=== PATIENT | male | born 1960 | race Caucasian/White ===

== ENCOUNTER 2020-11-29 19:11 | Emergency (ER) | payer OTHER ==
[2020-11-29] MEDS ORDERED: Sodium Chloride 0.9% 10 ML Syringe FLUSH PRN (19:44)
--- NOTE | 2020-11-29 19:54 | EDM.PDOC ---
ED HPI GENERAL MEDICAL PROBLEM - General Chief Complaint: Abdominal Pain Stated Complaint: ABDOMINAL PAINS Time Seen by Provider: 11/29/20 19:34 Source of Information: Reports: Patient, RN Notes Reviewed History Limitations: Reports: No Limitations - History of Present Illness INITIAL COMMENTS - FREE TEXT/NARRATIVE: Patient is a 60-year-old male presenting to the emergency department with complaints of left lower quadrant abdominal pain. This pain has been occurring off and on for approximately last month. He believes it could be related to constipation. In the past, he has used Ex-Lax and the pain has improved after taking that medication. He states that Monday this week, he felt fairly good. Today the left lower quadrant abdominal pain return, however he did have a normal bowel movement today. He denies any fever, chills, nausea, vomiting, or diarrhea. He has had a colonoscopy in the past and does not remember being told that he has diverticulosis. He is scheduled to have a repeat colonoscopy done next week. Denies any previous abdominal surgeries. Left Lower Abdomen Pain Score (Numeric/FACES): 5 - Related Data Allergies Allergy/AdvReac Type Severity Reaction Status Date / Time No Known Allergies Allergy Verified 11/29/20 19:33 Home Meds: Home Meds Lisinopril/Hydrochlorothiazide [Lisinopril-Hctz 20-25 mg Tab] 1 tab PO DAILY 11/29/20 [History] Past Medical History Cardiovascular History: Reports: Hypertension - Infectious Disease History Infectious Disease History: Reports: Chicken Pox - Past Surgical History HEENT Surgical History: Reports: Naso-Sinus Surgery Social & Family History - Family History Family Medical History: No Pertinent Family History - Tobacco Use Tobacco Use Status *Q: Never Tobacco User - Caffeine Use Caffeine Use: Reports: Coffee, Soda - Recreational Drug Use Recreational Drug Use: No ED ROS GENERAL - Review of Systems Review Of Systems: See Below Constitutional: Reports: No Symptoms HEENT: Reports: No Symptoms Respiratory: Reports: No Symptoms Cardiovascular: Reports: No Symptoms Endocrine: Reports: No Symptoms GI/Abdominal: Reports: Abdominal Pain (LLQ), Constipation. Denies: Diarrhea, Nausea, Vomiting : Reports: Dysuria. Denies: Flank Pain Musculoskeletal: Reports: No Symptoms Skin: Reports: No Symptoms Neurological: Reports: No Symptoms Psychiatric: Reports: No Symptoms Hematologic/Lymphatic: Reports: No Symptoms Immunologic: Reports: No Symptoms ED EXAM, GI/ABD - Physical Exam Exam: See Below General Appearance: Alert, WD/WN, No Apparent Distress Respiratory/Chest: No Respiratory Distress, Lungs Clear, Normal Breath Sounds, No Accessory Muscle Use, Chest Non-Tender Cardiovascular: Normal Peripheral Pulses, Regular Rate, Rhythm, No Edema, No Gallop, No JVD, No Murmur, No Rub GI/Abdominal Exam: Normal Bowel Sounds, Soft, No Organomegaly, No Distention, No Abnormal Bruit, No Mass, Pelvis Stable, Tender (LLQ) Neurological: Alert, Oriented, CN II-XII Intact, Normal Cognition, Normal Gait, Normal Reflexes, No Motor/Sensory Deficits Psychiatric: Normal Affect, Normal Mood Skin Exam: Warm, Dry, Intact, Normal Color, No Rash Course - Vital Signs Last Recorded V/S: Last Vital Signs Temp 98.2 F 11/29/20 19:31 Pulse 55 L 11/29/20 19:31 Resp 17 11/29/20 19:31 BP 138/88 11/29/20 19:31 Pulse Ox 98 11/29/20 19:31 - Orders/Labs/Meds Labs: Laboratory Tests 11/29/20 11/29/20 11/29/20 Range/Units 20:04 20:04 20:15 WBC 8.14 (4.23-9.07) K/mm3 RBC 5.21 (4.63-6.08) M/mm3 Hgb 15.2 (13.7-17.5) gm/dl Hct 46.3 (40.1-51.0) % MCV 88.9 (79.0-92.2) fl MCH 29.2 (25.7-32.2) pg MCHC 32.8 (32.2-35.5) g/dl RDW Std Deviation 39.5 (35.1-43.9) fL Plt Count 277 (163-337) K/mm3 MPV 10.3 (9.4-12.3) fl Neut % (Auto) 72.7 H (34.0-67.9) % Lymph % (Auto) 17.2 L (21.8-53.1) % [place] % (Auto) 8.7 (5.3-12.2) % Eos % (Auto) 1.1 (0.8-7.0) Baso % (Auto) 0.1 (0.1-1.2) % Neut # (Auto) 5.91 H (1.78-5.38) K/mm3 Lymph # (Auto) 1.40 (1.32-3.57) K/mm3 [place] # (Auto) 0.71 (0.30-0.82) K/mm3 Eos # (Auto) 0.09 (0.04-0.54) K/mm3 Baso # (Auto) 0.01 (0.01-0.08) K/mm3 Sodium 141 (136-145) mEq/L Potassium 3.9 (3.5-5.1) mEq/L Chloride 105 (98-107) mEq/L Carbon Dioxide 28 (21-32) mEq/L Anion Gap 11.9 (5-15) BUN 19 H (7-18) mg/dL Creatinine 1.4 H (0.7-1.3) mg/dL Est Cr Clr Drug Dosing 59.38 mL/min Estimated GFR (MDRD) 52 (>60) mL/min BUN/Creatinine Ratio 13.6 L (14-18) Glucose 102 (74-106) mg/dL Calcium 9.7 (8.5-10.1) mg/dL Total Bilirubin 0.6 (0.2-1.0) mg/dL AST 25 (15-37) U/L ALT 42 (16-63) U/L Alkaline Phosphatase 49 (46-116) U/L C-Reactive Protein <0.2 (<1.0) mg/dL Total Protein 7.6 (6.4-8.2) g/dl Albumin 4.2 (3.4-5.0) g/dl Globulin 3.4 gm/dL Albumin/Globulin Ratio 1.2 (1-2) Urine Color Yellow (Yellow) Urine Appearance Clear (Clear) Urine pH 5.5 (5.0-8.0) Ur Specific [place] > or = 1.030 (1.005-1.030) Urine Protein Negative (Negative) Urine Glucose (UA) Negative (Negative) Urine Ketones Negative (Negative) Urine Occult Blood Negative (Negative) Urine Nitrite Negative (Negative) Urine Bilirubin Negative (Negative) Urine Urobilinogen 0.2 (0.2-1.0) Ur Leukocyte Esterase Negative (Negative) Urine RBC 0-5 (0-5) /hpf Urine WBC 0-5 (0-5) /hpf Ur Squamous Epith Cells 0-5 (0-5) /hpf Urine Bacteria Few (FEW) /hpf Urine Mucus Moderate H (FEW) /hpf Meds: Medications Discontinued Medications Generic Name Dose Route Start Last Admin Trade Name Haily PRN Reason Stop Dose Admin Sodium Chloride 100 mls @ 60 drops/min 11/29/20 22:00 11/29/20 22:33 Normal Saline IV 60 drops/min ASDIRECTED CASH Administration Iopamidol 100 ml 11/29/20 21:49 11/29/20 22:32 Isovue-300 (61%) IVPUSH 11/29/20 21:50 100 ml ONETIME ONE Administration Sodium Chloride 10 ml 11/29/20 19:44 11/29/20 20:02 Saline Flush FLUSH 10 ml ASDIRECTED PRN Administration Keep Vein Open Sodium Chloride 10 ml 11/29/20 22:00 11/29/20 22:33 Saline Flush FLUSH 10 ml BOLUS CASH Administration - Re-Assessments/Exams Free Text/Narrative Re-Assessment/Exam: 11/29/20 21:01 Hematology was significant for BUN minimally elevated at 19, creatinine 1.4. Remaining work-up was unremarkable. CRP and WBCs are normal. Urinalysis was negative for any blood or signs of infection. X-ray of the abdomen flat and upright shows a normal bowel gas pattern with no signs of constipation. Given the patient's left lower quadrant tenderness, there is a possibility that he could have diverticulitis, although given his lab results is unlikely. He does request to proceed with a CT scan of the abdomen pelvis at this time. I have ordered abdomen pelvis CT with contrast to be completed. 11/29/20 22:45 The scan of the abdomen pelvis impression as follows 1. No acute findings. 2. Liver cyst and peripelvic cysts left kidney require no follow-up. 3. Prostate is enlarged. 4. A normal appendix is identified. 5. Nonspecific/nonobstructive intestinal gas pattern. 6. Small right renal calculus, no hydronephrosis. Results discussed with patient and his . Would recommend that he keeps his appointment for his colonoscopy as scheduled next Monday. There were no acute findings found on his work-up today. Discharge instructions as documented. Departure - Departure Time of Disposition: 22:46 Disposition: Home, Self-Care 01 Condition: Good Clinical Impression: Abdominal pain Qualifiers: Abdominal location: left lower quadrant Qualified Code(s): R10.32 - Left lower quadrant pain - Discharge Information *PRESCRIPTION DRUG MONITORING PROGRAM REVIEWED*: No *COPY OF PRESCRIPTION DRUG MONITORING REPORT IN PATIENT RIZWAN: No Instructions: Abdominal Pain, Adult Referrals: Mak Nobles MD [Primary Care Provider] - Forms: ED Department Discharge Additional Instructions: You were seen in the emergency department today for intermittent left lower quadrant abdominal pain over the course the last month with worsening of symptoms today. Work-up included blood work, urinalysis, and x-ray of your abdomen, and a CT scan of your abdomen and pelvis. Results of your work-up were found to be normal. There is no evidence of diverticulitis or constipation. Recommend that you keep your appointment for colonoscopy as scheduled with your primary care provider next Monday. If you should experience any new or worsening symptoms of concern, please do not hesitate to return to the emergency department for reevaluation. Sepsis Event Note (ED) - Evaluation Sepsis Screening Result: No Definite Risk
[2020-11-29] MEDS ORDERED: Iopamidol 612 MG/ML 100 ML Bottle IVPUSH ONE (21:49)
[2020-11-29] MEDS ORDERED: Sodium Chloride 0.9% 100 ML IV SCH (22:00)
[2020-11-29] MEDS ORDERED: Sodium Chloride 0.9% 10 ML Syringe FLUSH SCH (22:00)
--- NOTE | 2020-11-30 08:29 | CR ---
Abdomen: Supine and upright views of the abdomen were obtained. Comparison: No prior abdominal x-rays available. Bowel gas pattern appears normal. No free air is seen. Calcifications are seen within the lower pelvis which are felt compatible with phleboliths. No discrete soft tissue abnormality is appreciated. Bony structures are unremarkable. Impression: 1. Nothing acute is seen on 2 view abdominal x-ray. Diagnostic code #2
--- NOTE | 2020-11-30 08:42 | CT ---
CT abdomen and pelvis Technique: Multiple axial sections were obtained from above the dome of the diaphragm inferiorly through the pubic symphysis. Delayed images were also obtained through the abdomen and pelvis. Reconstructed coronal and sagittal images were also obtained. Comparison: Prior abdominal x-ray performed earlier on the same day (8:42 PM). Findings: Two small nodules are seen within the right lower lung next to the major fissure. Largest nodule measures approximately 3.8 mm. Small nodule adjacent to the pleura is noted within the left lung base measuring about 2.5 mm. Nothing acute is otherwise seen. Low density cyst is noted within the right lobe of the liver measuring approximately 1.1 cm. Very minimal low density lesion is noted more superiorly within the right lobe of the liver measuring 4 mm which is too small to characterize by Hounsfield unit measurements but most likely represents an additional cyst. Spleen shows no focal abnormality. Small amount of accessory splenic tissue is noted off the inferior spleen. Adrenal glands show no nodule. No abnormality is appreciated within the spleen. Gallbladder contains no calcified gallstones. Small nonobstructing calculus is seen within the right kidney measuring around 4 mm. Very minimal cyst is noted within the left kidney measuring 3 mm. No additional renal abnormality is seen. Delayed images show contrast within the ureters. No contrast is seen to extend into the bladder at this time. Abdominal aorta shows no aneurysm. No retroperitoneal adenopathy or mesenteric abnormalities are appreciated. No pelvic mass or adenopathy is seen. Prostate gland is mildly enlarged and shows intra-prostate calcifications. Appendix is is seen and is normal in size. No free fluid or inflammatory change is appreciated. Bone window settings were reviewed. Small limbus vertebra is noted at the anterior and superior endplate of L4. No acute osseous abnormality is appreciated. Impression: 1. Small findings as noted above which are believed to be incidental. 2. Small nodules within both lung bases. Recommend follow-up noncontrast chest CT study in one year. 3. Nothing acute is appreciated on CT study of the abdomen and pelvis. Diagnostic code #3 I mostly agree with preliminary report from ad (additional finding of lung nodules), finalized on 11/29/20, 11:38 PM BUS ASSISTANT
== END 2020-11-29 22:59 | disposition home or self-care (01) ==
LOC: JD.ED 19:11
DX: R10.32 Left lower quadrant pain (principal); I10 Essential (primary) hypertension; Z79.899 Other long term (current) drug therapy
CPT/HCPCS: 36415; 74019; 74177; 80053; 81001; 85025; 86140; 99284; Q9967